=== PATIENT | male | born 1995 | race Two or more races ===

== ENCOUNTER 2019-12-31 07:50 | Outpatient (REF) | payer OTHER, SELFPAY | END 2019-12-31 07:51 | disposition home or self-care (01) | LOC: HO.LAB 07:50 | PROVIDERS: Visit Provider Internal Medicine | DX: Z20.828 Contact with and (suspected) exposure to other viral communicable diseases (principal) | CPT/HCPCS: C9803; U0003 ==

== ENCOUNTER 2020-01-29 06:12 | Outpatient (REF) | payer OTHER, SELFPAY | END 2020-01-29 06:13 | disposition home or self-care (01) | LOC: HO.LAB 06:12 | PROVIDERS: Visit Provider Internal Medicine | DX: Z20.828 Contact with and (suspected) exposure to other viral communicable diseases (principal) | CPT/HCPCS: C9803; U0003 ==

== ENCOUNTER 2021-03-13 09:27 | Outpatient (REF) | payer OTHER, SELFPAY ==
[2021-03-13 09:49] LABS: COVID-19 Test Negative (Negative)
== END 2021-03-13 09:28 | disposition home or self-care (01) ==
LOC: HO.LAB 09:27
PROVIDERS: Visit Provider Internal Medicine
DX: Z20.822 Contact with and (suspected) exposure to COVID-19 (principal)
CPT/HCPCS: 87635; C9803

== ENCOUNTER 2024-07-05 19:16 | Emergency (ER) | payer OTHER, SELFPAY ==
[2024-07-05 19:29] VITALS: BP 165/91; PULSE 81; RESP 20; TEMP 36.9; O2SAT 100; BMI 27.6
--- NOTE | 2024-07-05 19:29 | ED.GENADULT ---
HPI - General Adult General Chief complaint: Urogenital-Male Stated complaint: multiple complaints Time Seen by Provider: 07/05/24 21:57 Source: patient Mode of arrival: ambulatory Limitations: no limitations History of Present Illness ED Provider: HPI narrative: Patient's history of STI/coronary in the past noticed for last 3 days purulent discharge from the penis intermittently was seen at urgent care center previously with negative STD test complaining of burning with urination Related Data Previous Rx's ?Medication ?Instructions ?Recorded doxycycline hyclate 100 mg tablet 100 mg PO BID #14 tabs 07/05/24 Allergies Allergy/AdvReac Type Severity Reaction Status Date / Time No Known Allergies Allergy Verified 07/05/24 19:31 Review of Systems Review of Systems: Yes all other systems are reviewed and are negative [facility] Social History Social History Advance Directives: No Advance Directives Information Provided: No Physical Exam ED Vital Signs: Vital Signs - 24 hr 07/05/24 19:29 07/05/24 22:06 07/05/24 22:37 Temperature 98.4 F 98.2 F 98.2 F Pulse Rate 81 57 57 Respiratory Rate 20 16 16 Blood Pressure 165/91 H 133/84 133/84 Pulse Oximetry 100 100 100 Oxygen Delivery Method Room Air Room Air Room Air BMI result Body Mass Index 27.6 Appearance: Alert. Oriented X3. No acute distress. Neck: Normal inspection. Neck supple. CVS: Normal heart rate and rhythm. Pulses normal. Respiratory: No respiratory distress. Equal air entry bilateral, no wheezing/rales/rhonchi Abdomen: Soft and nontender. Bowel sounds are present, no mass palpable, no CVA tenderness : No penile discharge Skin: Skin warm and dry. Normal skin color. Normal skin turgor. Extremities: No lower extremity edema. No calf tenderness Neuro: Oriented X 3. Course Course Course Narrative: This is an RME: Additional HPI, ROS, PE not included below will be deferred to primary provider. RME assessment and note performed by: Harry Oneal PA-C Patient reports 5 days of green penile discharge. Reports pruritus of the glans. Also reports dysuria, and B/L stabbing flank pain. Went UC and was tested for 2 STI's that came back negative . Reports subjective fever, chills and headache. Plan: Labs, UA, CTNG urine Medications Administered Discontinued Medications Generic Name Dose Route Start Last Admin Trade Name Ranulfo PRN Reason Stop Dose Admin Ceftriaxone Sodium 500 mg/ 0 mg 07/05/24 22:03 07/05/24 22:31 Lidocaine HCl 1 ml IM 07/05/24 22:04 350 kit ONCE ONE Administration Doxycycline Monohydrate 100 mg 07/05/24 22:03 07/05/24 22:30 Doxycycline Monohydrate 100 Mg Capsule PO 07/05/24 22:04 100 mg ONCE ONE Administration Medical Decision Making Medical Decision Making MDM Narrative: Patient with a high-risk of STI complains of purulent discharge from the penis at this time there were no discharge noticed sample sent for GC and chlamydia patient wanted the treatment patient was given prophylactic treatment for GC and chlamydia Lab Data [facility] Lab Attestation statement: I reviewed the patient's lab results. 07/05/24 19:44 07/05/24 19:44 Labs: Lab Results 07/05/24 Range/Units 19:44 WBC 6.9 (4.8-10.8) X10*3/uL RBC 5.07 (4.60-5.80) X10*6/uL Hgb 14.5 (14.0-18.0) g/dl Hct 42.7 (42.0-52.0) % MCV 84.2 (80.0-98.0) fL MCH 28.6 (27.0-33.0) pg MCHC 34.0 (31.0-36.0) g/dl RDW 14.3 (11.0-16.0) % Plt Count 258 (160-400) X10*3/uL MPV 8.9 L (9.4-12.4) fL Immature Gran % (Auto) 0.3 (0.0-0.4) % Neut % (Auto) 54.2 (45-73) % Lymph % (Auto) 36.1 (20-40) % Barry % (Auto) 7.2 (2-11) % Eos % (Auto) 1.5 (0-4) % Baso % (Auto) 0.7 (0-2) % Lymph # (Auto) 2.5 (1.2-4.9) X10*3/uL Barry # (Auto) 0.5 (0.1-1.2) X10*3/uL Eos # (Auto) 0.1 (0.0-0.4) X10*3/uL Baso # (Auto) 0.1 (0.0-0.2) X10*3/uL Abs Immat Gran (auto) 0.02 (0.00-0.03) X10*3/uL Absolute Neuts (auto) 3.7 (2.0-8.3) x10*3/uL Absolute Nucleated RBC 0.000 (0.0-0.012) X10*3/uL Nucleated RBC % (auto) 0.0 (0.0-0.2) /100WBC Sodium 141 (135-145) mmol/L Potassium 4.0 (3.3-5.1) mmol/L Chloride 107 (96-108) mmol/L Carbon Dioxide 27 (22-29) mmol/L Anion Gap 11 L (12-20) BUN 18 H (9-16) mg/dL Creatinine 0.81 (0.5-1.4) mg/dL Estim Creat Clear Calc 137.4 Estimated GFR > 60 Random Glucose 93 (60-115) mg/dL Calcium 9.7 (8.4-10.2) mg/dL Total Bilirubin 0.5 (0.0-1.0) mg/dL AST 24 (5-37) U/L ALT 30 (0-40) U/L Alkaline Phosphatase 90 (39-117) U/L Total Protein 7.8 (6.5-8.0) g/dL Albumin 5.1 H (3.5-5.0) g/dL Urine Color Yellow Urine Appearance Clear Urine pH 6.0 (5.0-9.0) Ur Specific Mary D >= 1.030 H (1.005-1.025) Urine Protein Negative (Neg-Trace) mg/dL Urine Glucose (UA) Negative (Negative) mg/dL Urine Ketones Trace (Negative) mg/dL Urine Blood Negative (Negative) Urine Nitrite Negative (Negative) Ur Leukocyte Esterase Negative (Negative) Chlam trachomat DNA PCR NOT DETECTED (Not Detect.) N.gonorrhoeae DNA (PCR) NOT DETECTED (Not Detect.) Discharge Plan Discharge Clinical Impression: Sexually transmitted disease Patient Disposition: Home, Self-Care Instructions: Sexually Transmitted Diseases (ED) Additional Instructions: Have safe sex practice Final report of your STI is pending You have been given prophylactic treatment for gonorrhea and chlamydia Prescriptions: New doxycycline hyclate 100 mg tablet 100 mg PO BID Qty: 14 0RF Interventions: ED Discharge Assessment Last Done: 07/05/24 22:37 Discharge Date/Time: 07/05/24 22:48 Print Language: Arabic
[2024-07-05 19:49] LABS: MANUAL DIFF FLAG NO
[2024-07-05 19:50] LABS: Basophils Absolute Auto 0.1 X10*3/uL (0.0-0.2); Basophils Percent Auto 0.7 % (0-2); Eosinophils Absolute Auto 0.1 X10*3/uL (0.0-0.4); Eosinophils Percent Auto 1.5 % (0-4); Hematocrit 42.7 % (42.0-52.0); Hemoglobin 14.5 g/dl (14.0-18.0); Imm Gran Abs Auto 0.02 X10*3/uL (0.00-0.03); Imm Gran Pct Auto 0.3 % (0.0-0.4); Lymphocytes Absolute Auto 2.5 X10*3/uL (1.2-4.9); Lymphocytes Percent Auto 36.1 % (20-40); Mean Corpuscular Hemoglobin 28.6 pg (27.0-33.0); Mean Corpuscular Volume 84.2 fL (80.0-98.0); Mean Platelet Volume 8.9 fL (9.4-12.4); Monocytes Absolute Auto 0.5 X10*3/uL (0.1-1.2); Monocytes Percent Auto 7.2 % (2-11); Neutrophils Absolute Auto 3.7 x10*3/uL (2.0-8.3); Neutrophils Percent Auto 54.2 % (45-73); Platelet Count 258 X10*3/uL (160-400); Red Blood Count 5.07 X10*6/uL (4.60-5.80); Red Cell Distribution Width 14.3 % (11.0-16.0); White Blood Count 6.9 X10*3/uL (4.8-10.8)
[2024-07-05 19:51] LABS: Appearance Urine Clear; Color Urine Yellow; Glucose Urine UA Negative (Negative); Leukocyte Esterase Urine Negative (Negative); Nitrite Urine Negative (Negative); Specific Gravity - Urine >= 1.030 (1.005-1.025); Urine Blood Negative (Negative); Urine Ketones Trace mg/dL (Negative); Urine Protein Negative (Neg-Trace)
[2024-07-05 20:04] LABS: Alanine Aminotransferase 30 U/L (0-40); Albumin Level 5.1 g/dL (3.5-5.0); Alkaline Phosphatase 90 U/L (39-117); Anion Gap 11 (12-20); Aspartate Amino Transferase 24 U/L (5-37); Bilirubin Total 0.5 mg/dL (0.0-1.0); Blood Urea Nitrogen 18 mg/dL (9-16); Calcium 9.7 mg/dL (8.4-10.2); Carbon Dioxide 27 mmol/L (22-29); Chloride 107 mmol/L (96-108); Creatinine Clr Calc Pharmacy 137.4; Estimated Glomerular Filt Rate > 60; Glucose Random 93 mg/dL (60-115); Sodium 141 mmol/L (135-145); Total Protein 7.8 g/dL (6.5-8.0)
--- OUTSIDE RECORDS SUMMARY | 2024-07-05 20:26 | XMS_ITS | Clinical Summary ---
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 Overview (11/13/2021): CXR negative, referred to TB clinic ; 10 m ppd, tb clinic 06/2015- TSPOT NEG (sent to scan 10/24) Tobacco use 08/27/2021 Requires Bacillus Calmette-Carlos Manuel vaccination Proteinuria 09/04/2014 Immunizations Immunization Administration Dates Next Due BCG 1996 DTP 08/03/1998, 8,01/09/1997,1996,0 1996 Hep B, Adolescent or Pediatric 01/03/2008,2007 Hepatitis B 03/19/2015 Influenza, Unspecified 01/03/2008 MMR 04/16/2015,05/20/2006 Measles 05/20/2006,06/10/1997,01/09/1997 PPD Test 03/19/2015,01/03/2008 Polio, Unspecified 08/03/1998, 8,01/09/1997,1996,0 1996 Td 08/02/2007 Tdap 03/19/2015 Varicella 04/16/2015,01/03/2008 Social History Tobacco Use Types Packs/Day Years Used Date Smoking Tobacco: Never Assessed Sex and Gender Information Value Date Recorded Sex Assigned at Not on file Legal Sex Male 1:42 PM EDT Gender Identity Not on file Sexual Orientation Not on file Plan of Treatment Health Maintenance Due Date Last Done Comments Influenza Vaccine (Season Ended) 2024 01/03/2008 Hepatitis B Vaccine Completed 03/19/2015, 01/03/2008, 08/02/2007 Pneumococcal Vaccine: Peds ( 0 to 5 Years) and At-Risk Patients (6 to 49 Years) Aged Out No longer eligi ble based on patient's age to complete this topic Care Teams [employer] Manager Relationship Specialty Start Date End Date Carie Richard [address] [place] [address] PCP - General 09/01/21
[2024-07-05 22:06] VITALS: BP 133/84; PULSE 57; RESP 16; TEMP 36.8; O2SAT 100
[2024-07-05] MEDS: Doxycycline Monohydrate 100 MG CAPSULE PO (22:30)
[2024-07-05] MEDS: cefTRIAXone sodium 500 MG, Lidocaine HCl 1 % MPF 1 ML IM (22:31)
[2024-07-05 22:37] VITALS: BP 133/84; PULSE 57; RESP 16; TEMP 36.8; O2SAT 100
[2024-07-05 23:20] LABS: CT PCR NOT DETECTED (Not Detect.); NG PCR NOT DETECTED (Not Detect.)
== END 2024-07-05 22:48 | disposition home or self-care (01) ==
PROVIDERS: Emergency Provider Internal Medicine
DX: A64 Unspecified sexually transmitted disease (principal); R36.9 Urethral discharge, unspecified; Z79.899 Other long term (current) drug therapy
CPT/HCPCS: 36415; 80053; 81003; 85025; 87491; 87591; 96372; 99284; J0696; J2003

== ENCOUNTER 2024-08-30 14:18 | Outpatient (REF) | payer OTHER, SELFPAY ==
[2024-08-31 03:40] LABS: Syphilis Screen Nonreactive (Nonreactive)
[2024-08-31 04:07] LABS: HBsAGNum1 0.34 S/CO (0.00-0.99); HIV Num 1 0.06 S/CO (0.00-0.99); Hepatitis B Surface Antigen Negative (Negative); ~HepC Num1 0.13 S/CO (0.00-0.79); ~Hepatitis C Antibody Nonreactive (Nonreactive)
== END 2024-08-30 14:19 | disposition home or self-care (01) ==
LOC: HO.LAB 14:18
PROVIDERS: Visit Provider Urology
DX: Z11.3 Encounter for screening for infections with a predominantly sexual mode of transmission (principal); Z11.4 Encounter for screening for human immunodeficiency virus [HIV]; Z11.59 Encounter for screening for other viral diseases; R36.9 Urethral discharge, unspecified; R30.9 Painful micturition, unspecified; Z20.2 Contact with and (suspected) exposure to infections with a predominantly sexual mode of transmission; Z79.899 Other long term (current) drug therapy
CPT/HCPCS: 36415; 81003; 86780; 86803; 87340; 87389

== ENCOUNTER 2024-08-30 14:18 | Outpatient (AMB) | payer OTHER, SELFPAY ==
--- OUTSIDE RECORDS SUMMARY | 2024-08-30 14:22 | XMS_ITS | Clinical Summary ---
Author Organization [facility] ity Address [address] [place] [address] Care Team Providers Care Therapy Manager Name Role Phone Tulio Tee MD Primary Care Provider [phone] Allergies No known active allergies Active Problems Problem Noted Date Diagnosed Date PPD positive 02/07/2024 Overview (02/07/2024): CXR negative, referred to TB clinic ; 10 m ppd, tb clinic 06/2015- TSPOT NEG (sent to scan 10/24) Hypertension 10/13/2021 Overview (02/07/2024): Last Assessment & Plan: Blood pressure seems to be normal now off of medical therapy since of the notes is going on here which I do not know either dietary or Chest pain 09/28/2021 Overview (02/07/2024): Last Assessment & Plan: She complained of vague chest discomfort probably not cardiac but we will send him for stress test to ensure that Palpitations 09/28/2021 Overview (02/07/2024): Last Assessment & Plan: Patient was placed on Bystolic for his symptoms while in [facility]. Not a great drug for him 26-year-old he is having significant side effects from it he was also on hydrochlorothiazide. We will stop this gradually decreasing to half pill a day for the next week. He also some evidence of second-degree block not a great drug of choice that would come back reassess his blood pressure reassess his symptoms and then reconstruct his hypertensive therapy if necessary.. Proteinuria 09/04/2014 Immunizations Name Administration Dates Next Due BCG 1996 DTP 08/03/1998, 8,01/09/1997,1996,1996 Hepatitis B (Vkrybji-Y-Kbtfh , Recombivax HB-Adult) 19yo and older 03/19/2015 Hepatitis B Pediatric (Enger ix B; Recombivax HB) to less than 20 yo 01/03/2008,08/02/2007 Influenza trivalent, with preservative (Fluzone; Afluria) 6mo and older 01/03/2008 MMR, measles mumps and rubel la Live (Priorix; M-M-R II) 12mo and older 04/16/2015,05/20/2006 Measles 05/20/2006,06/10/1997,01/09/1997 OPV 08/03/1998, 8,01/09/1997,1996,1996 Td Tetanus diptheria (Tdvax) 7yo and older 08/02/2007 Tdap Tetanus diptheria acell ular pertussis (Boostrix; Adacel) 7yo and older 03/19/2015 Varicella live (Varivax) 12m o and older 04/16/2015,01/03/2008 Surgical History Surgery Date Site/Laterality Comments OTHER SURGICAL HISTORY PROCEDURE: DENIES PREVIOUS SURGERY Medical History Medical History Date Comments Asthma DX:Asthma PPD positive 12/15 DX:PPD positive; COMMENT: CXR negative, referred to TB clinic Family History Medical History Relation Name Comments Allergies Father Asthma Father Hypertension Father Relation Name Status Comments Father Social History Tobacco Use Types Packs/Day Years Used Date Smoking Tobacco: Every Day Smokeless Tobacco: Never Alcohol Use Standard Drinks/Week Comments Yes 0 (1 standard drink = 0.6 oz pur e alcohol) Sex and Gender Information Value Date Recorded Sex Assigned at Not on file Legal Sex Male 3:14 AM EST Gender Identity Not on file Sexual Orientation Not on file Obstetrics History Last Filed Vital Signs Vital Sign Reading Time Taken Comments Blood Pressure 100/70 09/29/2021 2:29 PM EDT Standing L Arm Pulse 65 10/13/2021 3:27 PM EDT Temperature - - Respiratory Rate - - Oxygen Saturation - - Inhaled Oxygen Concentration - - Weight 86.7 kg (191 lb 3.2 oz) 10/13/2021 3:27 PM EDT Height 172.7 cm (5' 8 ) 10/13/2021 3:27 PM EDT Body Mass Index 29.07 10/13/2021 3:27 PM EDT Plan of Treatment Health Maintenance Due Date Last Done Comments Pneumococcal Vaccine: Pediatrics (0 to 5 Years) and At-Risk Patients (6 to 49 Years) (1 of 2 - PCV) 2015 Social Influencers of Health Screening 01/10/2022 Hypertension/CHF/CAD Annual BMP Blood Test 08/27/2022 08/27/2021 COVID-19 Vaccine ( season) 2023 08/02/2020, 07/05/2020 Depression Screening 02/08/2024 Influenza Vaccine (#1) 2024 01/03/2008 DTaP,Tdap,and Td Vaccines (7 - Td or Tdap) 03/19/2025 03/19/2015, 08/02/2007, 08/03/1998, Additional history exists Cholesterol Screening (Lipid Panel) 08/27/2026 08/27/2021 IPV Vaccines Completed 08/03/1998, 05/1997, 01/09/1997, Additional history exists Hepatitis B Vaccines Completed 03/19/2015, 01/03/2008, 08/02/2007 MMR Vaccines Completed 04/16/2015, 05/20/2006 Varicella Vaccines Completed 04/16/2015, 01/03/2008 HIV Screening Completed 01/03/2019 Hepatitis C Screening Completed 01/03/2019 HIB Vaccines Aged Out No longer eligi ble based on patient's age to complete this topic HPV Vaccines Aged Out No longer eligi ble based on patient's age to complete this topic Hepatitis A Vaccines Aged Out No long er eligible based on patient's age to complete this topic Meningococcal ACWY Vaccine Aged Out N o longer eligible based on patient's age to complete this topic Meningococcal B Vaccine Aged Out No l onger eligible based on patient's age to complete this topic RSV Immunization Patients Under 20 months Aged Out No longer eligible based on patient's age to complete this topic Procedures Procedure Name Priority Date/Time Associated Diagnosis Comments ANNUAL BMP BLOOD TEST Routine 08/27/2021 LIPID PANEL Routine 08/27/2021 HEPATITIS C SCREENING Routine 01/03/2019 HIV SCREENING Routine 01/03/2019 from Last 3 Months or Most Recently Relevant to Health Maintenance Results * Annual BMP Blood Test (08/27/2021) Annual BMP Blood Test abstracted [facility] Provider HEALTH MAINTENANCE Final Result * (ABNORMAL) Lipid panel (08/27/2021) Pathologist [facility] LDL/HDL Ratio 6(A) 0 - 4 Triglycerides 243(A) 0 - 150 mg/dL Cholesterol 191 0 - 200 mg/dL HDL 34(A) >=40 mg/dL LDL Cholesterol 109(A) 0 - 100 mg/dL Blood Venous blood specimen / Unknown [facility] Provider LAB BLOOD ORDERABLES Yamileth l Result * HIV Screening (01/03/2019) Pathologist [facility] HIV Screening abstracted [facility] Provider HEALTH MAINTENANCE Final Result * Hepatitis C Screening (01/03/2019) Pathologist [facility] Hepatitis C Screening abstracted [facility] Provider HEALTH MAINTENANCE Final Result from Last 3 Months or Most Recently Relevant to Health Maintenance Care Teams Therapy Manager Relationship Specialty Start Date End Date Tulio Tee MD PCP - General Internal Medicine 11/25/18
--- OUTSIDE RECORDS SUMMARY | 2024-08-30 14:22 | XMS_ITS | Clinical Summary ---
Author Organization [facility] Facility Address [address] [place] [id number] Care Team Providers Care Ecological Risk Assessor Name Role Phone Carie Richard Primary Care Provider Medications hydroCHLOROthiaz george (MICROZIDE) 12.5 MG capsule [...] Due Date Last Done Comments Influenza Vaccine (#1) 2024 01/03/2008 Hepatitis B Vaccine Completed 03/19/2015, 01/03/2008, 08/02/2007 Pneumococcal Vaccine: Peds ( 0 to 5 Years) and At-Risk Patients (6 to 49 Years) Aged Out No longer eligi ble based on patient's age to complete this topic Care Teams Ecological Risk Assessor Relationship Specialty Start Date End Date Carie Richard [address] [place] [address] PCP - General 09/01/21
--- OUTSIDE RECORDS SUMMARY | 2024-08-30 14:22 | XMS_ITS | Data Portability ---
Author Organization [facility], [address] Address [address] [place] [address] Assessment No assessment recorded. Plan of Treatment Reminders Order Date Submit Date Provider Last Modified By Organization Details Last Modified Time Details Appointments None recorded. Lab urinalysis, dipstick 2022 023 [email or web address] 5 [facility], [address] [place], [address], 3 13:47:55 culture, urine 2022 023 [facility] ([place]), [address] [place] [address], [address], 3 06:07:54 unlisted lab - CT/GC/TV YOEL+mycopla smas urine 2022 023 [employer], [address] [place] [address], [address], 3 06:06:15 herpes simplex + varicella zoster, culture, unspecified specimen 2022 023 [facility], [address] [place] [address], [address], 3 12:06:08 Referral urologist referral 2022 023 [email or web address] miguel Wood MD, [address], [address], 3 13:57:49 Procedures None recorded. Surgeries None recorded. Imaging None recorded. Medication Orders None recorded. Patient TargetsNo targets recorded. Patient Instructions Encounter Date Encounter Id Patient Instructions Last Modified By Organization Details Last Modified Time 10/19/2022 [id number] painful urinatio n (dysuria): care instructions [email or web address] Not available 10/19/2022 13:47:52 genital herpes: care instructions [email or web address] Not available 10/19/2022 13:47:52 testicular pain: care instructions [email or web address] Not available 10/19/2022 13:47:52 You will be contacted when your lab reports return. See printed instructions. A referral to urology has been made for you, call Dr. Wood to make an appointment as soon as possible. Follow-up with your doctor as soon as possible. Seek Emergency Medical evaluation for any worsening symptoms, particularly for increased testicular pain, swelling, penile or scrotal lesions, redness, skin discoloration, abdominal pain, fever, chills, inability to urinate. [email or web address] Not available 10/19/2022 13:52:51 Reason for Referral Urologist Referral for Pain of left testicle Intermittent left testicular pain and dysuria. Negative STI testing on multiple occasions Referring Physician: Rachel Kearney, Urgent Care, Encounter Date: 10/19/2022 Results Created Date Observation Date Name Description Value Unit Range Abnormal Flag Note LastModifiedBy Organization Detail LastModifiedTime 10/20/1910/21/2022 URINE CULTU RE, ROUTI NE urine culture, routine FINAL REPORT Not Available [facility] ([facility]) [address] [place], [address], 10/21/2022 06:07:54 10/20/1910/21/2022 URINE CULTU RE, ROUTI NE result 1 COMMEN T Cultu re shows less than 10,00 0 colon y formi ng units of bacte martha per harvey liter of urine . This colon y count is not gener ally consi dered to be clini noe signi tal t. Not Available [facility] ([facility]) [address] [place], [address], 10/21/2022 06:07:54 10/20/19 23 10/21/2022 VIRAL CULTU RE,RA PID,L ESION hsv culture/type COMMEN T Test not perfo rmed. No viral trans port devic e recei nicolette. Not Available [facility] ([facility]) [address] [facility], [place], [address], 10/21/2022 12:06:08 10/20/19 23 10/21/2022 VIRAL CULTU RE,RA PID,L ESION viral culture, rapid,varice lla TNP Test not perfo rmed Not Available [facility] ([facility]) [address] [place], [address], 10/21/2022 12:06:08 10/20/19 23 10/21/[address] PROBL EM request problem COMMEN T Test not perfo rmed. No viral trans port devic e recei nicolette. TEST: [id number] Viral Cultu re,Ra pid,L esion Not Available [facility] ([facility]) [address] [facility], [place], [address], 10/21/2022 12:06:09 10/20/19 23 10/22/2022 CT/GC /TV YOEL+M YCOPL ASMAS URINE mycoplasma genitalium YOEL NEGATI VE negati ve Not Available [facility] ([facility]) [address] [place], [address], 10/25/2022 06:06:15 10/20/1910/22/2022 CT/GC /TV YOEL+M YCOPL ASMAS URINE mycoplasma hominis YOEL NEGATI VE negati ve Not Available [facility] ([facility]) [address] [place], [address], 10/25/2022 06:06:15 10/20/19 23 10/22/2022 CT/GC /TV YOEL+M YCOPL ASMAS URINE ureaplasma spp YOEL NEGATI VE negati ve Not Available [facility] ([facility]) [address] [place], [address], 10/25/2022 06:06:15 10/20/1910/24/2022 CT/GC /TV YOEL+M YCOPL ASMAS URINE trich vag by YOEL NEGATI VE negati ve Not Available [facility] ([facility]) [address] [place], [address], 10/25/2022 06:06:15 10/20/1910/24/2022 CT/GC /TV YOEL+M YCOPL ASMAS URINE chlamydia trachomatis, YOEL NEGATI VE negati ve Not Available [facility] ([facility]) [address] [facility], [place], [address], 10/25/2022 06:06:15 10/20/1910/24/2022 CT/GC /TV YOEL+M YCOPL ASMAS URINE neisseria gonorrhoeae, YOEL NEGATI VE negati ve Not Available [facility] ([facility]) [address] [place], [address], 10/25/2022 06:06:15 10/20/1910/19/2022 urina lysis , dipst ick Unknown Analyte Yellow Not Available [facility] [place], [address], 10/19/2022 12:50:49 10/20/1910/19/2022 urina lysis , dipst ick Unknown Analyte Clear Not Available [facility] [address] [place], [address], 10/19/2022 12:50:49 10/20/1910/19/2022 urina lysis , dipst ick Unknown Analyte Negati ve Not Available [facility] [address] [place], [address], 10/19/2022 12:50:49 10/20/1910/19/2022 urina lysis , dipst ick Unknown Analyte Negati ve Not Available [facility] [address] [place], [address], 10/19/2022 12:50:49 10/20/1910/19/2022 urina lysis , dipst ick Unknown Analyte Negati ve Not Available [facility] [address] [place], [address], 10/19/2022 12:50:49 10/20/1910/19/2022 urina lysis , dipst ick Unknown Analyte 1.030 Not Available [facility] [address] [place], [address], 10/19/2022 12:50:49 10/20/1910/19/2022 urina lysis , dipst ick Unknown Analyte Negati ve Not Available [facility] [address] [place], [address], 10/19/2022 12:50:49 10/20/1910/19/2022 urina lysis , dipst ick Unknown Analyte 5.5 Not Available [address] [facility] [address] [place], [address], 10/19/2022 12:50:49 10/20/1910/19/2022 urina lysis , dipst ick Unknown Analyte Negati ve Not Available [facility] [address] [place], [address], 10/19/2022 12:50:49 10/20/1910/19/2022 urina lysis , dipst ick Unknown Analyte 0.2 E.U./d L Not Available [facility] [address] [place], [address], 10/19/2022 12:50:49 10/20/1910/19/2022 urina lysis , dipst ick Unknown Analyte Negati ve Not Available [facility] [address] [place], [address], 10/19/2022 12:50:49 10/20/1910/19/2022 urina lysis , dipst ick Unknown Analyte Negati ve Not Available [address] [place], [address], 10/19/2022 12:50:49 Result Notes None recorded. Problems No Known Problems Procedures Surgical History Date Name Laterality Status Provider Name and Address Organization Details Recorded Time OC-UDS Send Out Template NON DOT completed Karmen Connor PA - [facility] 08/27/2023 14:30:37 Imaging Results None recorded. Procedure Notes None recorded. Medical Equipment None Reported. Allergies No known drug allergies Medications Not known to be on any medication Vitals Date Recorded Body height Body mass index (BMI) Body weight Heart rate Oxygen saturation Oxygen saturation in Arterial blood by Pulse oximetry Respiratory rate Body temperature Systolic And Diastolic Provider Name and Address Organization Details Last Updated DateTime 3 172.72 cm 28.6 kg/m2 04945.3 7 g 68 /min 100 % 100 % 19 /min 98 [degF] 119/80 mm[Hg] JOSS FERRARO PA - [facility] 3 12:41:40 Social History None recorded. Functional Status None recorded. Mental Status None recorded. Family History Relationship Description Onset Age of this Age Resolved Age Notes LastModified by Organization Details LastModified Time Father No current problems or disability [email or web address] Not available 10/19 12:42:08 Mother No current problems or disability [email or web address] Not available 10/19 12:42:08 Medical History No medical history recorded. Immunizations Vaccine Type Date Status Note Provider Nam e and Address Organization Details Recorded Time measles 7 completed JOSS muñiz PA - [facility] 10/19/2022 12:41:55 measles 8 completed JOSS FERRARO null, PA - [facility] 10/19/2022 12:41:55 measles 7 completed JOSS FERRARO null, PA - [facility] 10/19/2022 12:41:55 MMR 6 completed JOSS FERRARO null, PA - [facility] 10/19/2022 12:41:55 MMR 7 completed JOSS FERRARO null, PA - [facility] 10/19/2022 12:41:56 COVID-19, mRNA, LNP-S, PF, 100 mcg/0.5mL dose or 50 mcg/0.25mL dose 1 completed JOSS FERRARO null, PA - [facility] 10/19/2022 12:41:56 COVID-19, mRNA, LNP-S, PF, 100 mcg/0.5mL dose or 50 mcg/0.25mL dose 1 completed JOSS FERRARO null, PA - [facility] 10/19/2022 12:41:56 Tdap 6 completed JOSS FERRARO null, PA - [facility] 10/19/2022 12:41:56 varicella 6 completed JOSS FERRARO null, PA - [facility] 10/19/2022 12:41:56 varicella 8 completed JOSS FERRARO null, PA - [facility] 10/19/2022 12:41:56 DTP 8 completed JOSS FERRARO null, PA - [facility] 10/19/2022 12:41:56 DTP 7 completed JOSS FERRARO null, PA - [facility] 10/19/2022 12:41:56 DTP 9 completed JOSS FERRARO null, PA - [facility] 10/19/2022 12:41:56 DTP 7 completed JOSS FERRARO null, PA - [facility] 10/19/2022 12:41:56 DTP 7 completed JOSS FERRARO null, PA - [facility] 10/19/2022 12:41:56 OPV, trivalent 8 completed JOSS FERRARO null, PA - [facility] 10/19/2022 12:41:56 OPV, trivalent 7 completed JOSS FERRARO null, PA - [facility] 10/19/2022 12:41:56 OPV, trivalent 9 completed JOSS FERRARO null, PA - [facility] 10/19/2022 12:41:56 OPV, trivalent 7 completed JOSS FERRARO null, PA - [facility] 10/19/2022 12:41:56 OPV, trivalent 7 completed JOSS FERRARO null, PA - [facility] 10/19/2022 12:41:56 BCG 7 completed JOSS FERRARO null, PA - [facility] 10/19/2022 12:41:56 Influenza, split virus, trivalent, preservative 8 completed JOSS FERRARO null, PA - [facility] 10/19/2022 12:41:56 Td (adult), 2 Lf tetanus toxoid, preservative free, adsorbed 8 completed JOSS FERRARO null, PA - [facility] 10/19/2022 12:41:56 Hep B, adolescent or pediatric 8 completed JOSS FERRARO null, PA - [facility] 10/19/2022 12:41:56 Hep B, adolescent or pediatric 8 completed JOSS FERRARO null, PA - [facility] 10/19/2022 12:41:56 Hep B, adult 6 completed JOSS FERRARO null, PA - [facility] 10/19/2022 12:41:56 Past Encounters Encounter ID Performer Location Encounter Start Date Encounter Closed Date Diagnosis/Indication Diagnosis SNOMED-CT Code Diagnosis ICD10 Code Diagnosis Note [id number] [address] [address] [address] 07/22/2019 11:51:06 07/22/2019 12:20:41 [id number] [address] [address] [facility] [place] [address] 10/05/2020 09:13:31 10/05/2020 12:43:15 [id number] Rachel [facility]ney [facility] [address] [place] [address] 10/19/2022 12:21:56 10/19/2022 13:57:48 Dysuria 23614902 R30.0 Pain of left testicle 16 20560482 [id number] N50.812 [id number] LEXIE MCGILL [facility] [address] [address] [facility] [place] [address] 08/27/2023 13:55:41 08/27/2023 14:34:24 History and physical examination, occupation 976982251 Z02.1 Health Concerns Section Related Observation LastModified by Organization Detai ls LastModified Time None Recorded Concern Status LastModified by Organization Details LastModified Time None Recorded Advance Directives Directive None Recorded Payers Insurance Date Sequence Insurance Name Policy Number Policy Arrington Covered Member ID Arrington Member ID Guarantor Name 08/27/2023 OC-ESCREEN [employer] (Fadv Ec [id number] Srikanth Betina 10/19/[address] [facility] [id number] Srikanth D Betina [id number] Srikanth Betina 10/19/2022 1 [employer] [id number] Srikanth Betina [id number] Srikanth Betina 08/27/2023 1 [employer] [id number] Srikanth Betina [id number] Srikanth Betina Notes Date Note Type Note Provider Name and Address Organization Details Recorded Time 10/19/2022 text/html Urinary Problems-MaleReported by PatientGU ProblemsFor quality, patient reportsdull. For source of patient information, patient reportsinformation obtained from patientandpatient arrived at urgent care ambulatory. For location, patient reportspenis(testicles. ). For severity, patient reportsmild. For associated symptoms, patient reportsno scrotal lesions/sores,no penile discharge,no flank pain,no jaundice,no blood in the urine,no change in urine appearance,no urine odor,no impotence,no fever/chills,no fatigue, andno myalgia(has noted some bumps on his penis and would like to be tested for herpes. bumps are not painful.). For duration, (most recently for 5 days intermittent.). For onset/timing, (intermittent, low grade for 5 days.). For context, (tested negative for std's several times over past 4 months.). For modifying factors, (has occasional very mild dysuria.).27 year old male presenting for evaluation of very mild, vague, left testicular discomfort, intermittent mild dysuria and some non-painful bumps on his penis for the past 5 days. He reports having genital issues on and off for about 4 months. He has had balanitis that has been treated. He has had recurrent bilateral testicular discomfort for which he has seen several doctors. Two months ago while in [facility] he reports that he was diagnosed with a strep infection on a sperm test. He was treated with antibiotics and felt better. He states he has been told he did not have testicular torsion. He has had multiple tests for STD's that were all negative. He denies fever, chills, generalized rash, urethral discharge, testicular masses or swelling, scrotal redness/rash/lesions. No flank pain, hematuria, nausea, vomiting, diarrhea or back pain. Rachel Kearney MD [address] [facility] [place], [address], PA - [facility] 10/21/2022 09:42:05
--- OUTSIDE RECORDS SUMMARY | 2024-08-30 14:23 | XMS_ITS ---
Author Name [facility] Organization Unknown Care Team Organization Name Specialty Phone Email Start Date End Da te [facility] 12/15/2021 4
--- NOTE | 2024-08-30 14:43 | A.OFFVIS_ITS ---
Intake Visit Reasons: hx of dysuria/urethral discharge Intake Note: New patient presents today for initial visit for hx of dysuria/urethral discharge Urology Medication:None Blood Thinner:None Antibiotic Allergies:None Pyridine Recovery Operator Required: No Allergies No Known Allergies Allergy (Verified 08/30/24 14:45) Medication List - Last Reconciled 08/30/24 by Angeline Roldan MD sulfamethoxazole-trimethoprim 800-160 mg (Bactrim DS) 1 tab PO BID 14 days tamsulosin (Flomax) 0.4 mg PO BEDTIME HPI Comments Details: 08/30/24 History of Present Illness - The patient is a 29-year-old male presenting with penile discharge. - The discharge was initially noted earlier this year and was treated with antibiotics in June. - Despite treatment, the discharge has persisted. - Urine tests for gonorrhea and chlamydia conducted on July 05 returned negative results. - The discharge varies in appearance and is sometimes associated with a burning sensation during urination. - The patient has not undergone testing for HIV or other sexually transmitted infections beyond the basic protocol. - The physician suspects prostatitis as a potential cause of the discharge. Results - Urine test for gonorrhea: Negative - Urine test for chlamydia: Negative Plan - Prescribe a different antibiotic to address possible atypical bacterial infection. - Recommend partner evaluation by a bread oven operator and advise condom use during intercourse. - Order blood tests for HIV and other sexually transmitted infections. - Prescribe tamsulosin to relax prostate muscles and reduce discharge. - Advise monitoring for dizziness as a side effect of tamsulosin and report to the nurse if it occurs. Results AMB Urinalysis, Automated UA Leukoctes 0 Deven/uL Last Edit by Joselyn Pichardo on 08/30/24 16:32 UA Nitrite Negative Last Edit by Joselyn Pichardo on 08/30/24 16:32 UA Urobilinogen 17 mg/dL Last Edit by Joselyn Pichardo on 08/30/24 16:32 UA Protein 1 mg/dL Last Edit by Joselyn Pichardo on 08/30/24 16:32 UA pH 6.0 Last Edit by Joselyn Pichardo on 08/30/24 16:32 UA Blood 0 Pio/uL Last Edit by Joselyn Pichardo on 08/30/24 16:32 UA Specific [place] 1.015 Last Edit by Joselyn Pichardo on 08/30/24 16:32 UA Ketone Negative Last Edit by Joselyn Pichardo on 08/30/24 16:32 UA Bilirubin 0 mg/dL Last Edit by Joselyn Pichardo on 08/30/24 16:32 UA Glucose 0 mg/dL Last Edit by Joselyn Pichardo on 08/30/24 16:32 Results Reviewed Results Reviewed: Laboratory Last Values Urine pH (Auto) 6.0 08/30/24 16:17 Specific [place] (Auto) 1.015 08/30/24 16:17 Urine Protein (Auto) 1 mg/dL 08/30/24 16:17 Glucose (UA)(Auto) 0 mg/dL 08/30/24 16:17 Urine Ketones (Auto) Negative 08/30/24 16:17 Urine Blood (Auto) 0 Pio/uL 08/30/24 16:17 Urine Nitrite (Auto) Negative 08/30/24 16:17 Urine Bilirubin (Auto) 0 mg/dL 08/30/24 16:17 Urine Urobilinogen (Auto) 17 mg/dL 08/30/24 16:17 Leukocyte Esterase (Auto) 0 Deven/uL 08/30/24 16:17 Assessment & Plan Assessment & Plan (1) Possible exposure to STD: Code(s): Z20.2 - Contact with and (suspected) exposure to infections with a predominantly sexual mode of transmission Category: Medical Orders: Orders HIV Ab/Ag Today 20.2 - Contact with and (suspected) exposure to infections with a predominantly sexual mode of transmission Hepatitis C Antibody Today 20.2 - Contact with and (suspected) exposure to infections with a predominantly sexual mode of transmission AMB Urinalysis Automated Today 20.2 - Contact with and (suspected) exposure to infections with a predominantly sexual mode of transmission Hepatitis B Surface Antigen Today 20.2 - Contact with and (suspected) exposure to infections with a predominantly sexual mode of transmission Syphilis Screen Today 20.2 - Contact with and (suspected) exposure to infections with a predominantly sexual mode of transmission Medications: New sulfamethoxazole-trimethoprim 800-160 mg (Bactrim DS) 1 tab PO BID 28 tabs 0RF 14 days tamsulosin (Flomax) 0.4 mg PO BEDTIME 30 caps 0RF Discontinued doxycycline hyclate Discontinued Reason: Patient no longer taking 100 mg PO BID 14 tabs 0RF Coding Diagnoses Possible exposure to STD Z20.2
== END 2024-08-30 16:11 | disposition home or self-care (01) ==
LOC: HO.HUSH 14:19
PROVIDERS: Visit Provider Urology
DX: Z20.2 Contact with and (suspected) exposure to infections with a predominantly sexual mode of transmission (principal)

== ENCOUNTER 2024-10-05 15:05 | Outpatient (AMB) | payer OTHER, SELFPAY ==
--- NOTE | 2024-10-05 15:06 | A.OFFVIS_ITS ---
Intake Visit Reasons: 5W/Labs Intake Note: patient presents today for: telehealth 5 week follow up on labs Urology Medication: tamsilosin Blood Thinner:None Mattress Filling Machine Tender Required: Yes Mattress Filling Machine Tender Name: Luis Mojica Information Interpreted: non-clinical & clinical Accompanied by: Self / Same As Patient Allergies No Known Allergies Allergy (Verified 10/05/24 15:07) Medication List - Last Reconciled 10/05/24 by Angeline Roldan MD No Known Home Meds HPI Comments Details: 10/05/2024--Felipe was initially evaluated on 08/30/2024 for urethral discharge. He had completed a course of doxycycline with persistent symptoms. I placed him on Bactrim DS b.i.d. for 14 days and tamsulosin. The patient states he completed the antibiotics. He took the tamsulosin for 20 days and stopped. He states he no longer has urethral discharge. I have reviewed serum STDs including HIV which have come back negative. Patient instructed on using condom with sexual activity to decrease risk of STD. 08/30/24 History of Present Illness - The patient is a 29-year-old male presenting with penile discharge. - The discharge was initially noted earlier this year and was treated with antibiotics in June. - Despite treatment, the discharge has persisted. - Urine tests for gonorrhea and chlamydia conducted on July 05 returned negative results. - The discharge varies in appearance and is sometimes associated with a burning sensation during urination. - The patient has not undergone testing for HIV or other sexually transmitted infections beyond the basic protocol. - The physician suspects prostatitis as a potential cause of the discharge. Results - Urine test for gonorrhea: Negative - Urine test for chlamydia: Negative Plan - Prescribe a different antibiotic to address possible atypical bacterial infection. - Recommend partner evaluation by a freight and passenger agent and advise condom use during intercourse. - Order blood tests for HIV and other sexually transmitted infections. - Prescribe tamsulosin Review of Systems Const All systems reviewed & are unremarkable except as noted in HPI and below Reports no additional complaints Eyes Reports no additional complaints ENT Reports no additional complaints Card Reports no additional complaints Resp Reports no additional complaints GI Reports no additional complaints Reports as per HPI Musc Reports no additional complaints Skin/Breast Reports system reviewed and no additional complaints, except as documented Neuro Reports no additional complaints Psych Reports no additional complaints Endo Reports no additional complaints Lucian/Lymph Reports no additional complaints Aller/Immun Reports no additional complaints Telehealth Telehealth Telehealth Platform: Telephone Location of provider rendering services: practice address Location of patient: address on file Patient Identification confirmed using: Name, : Yes Telehealth method: voice only Patient verbally consented to treatment: Yes Patient verbally consented to billing insurance company: Yes Patient informed of any privacy concerns related to visit: Yes Minutes spent on Phone/Video with Pt.: 13 Assessment & Plan Assessment & Plan (1) Urethral discharge in male: Code(s): R36.9 - Urethral discharge, unspecified Category: Medical Plan FU prn Medications: Discontinued sulfamethoxazole-trimethoprim 800-160 mg (Bactrim DS) Discontinued Reason: Patient Completed Course 1 tab PO BID 14 days 28 tabs 0RF tamsulosin (Flomax) Discontinued Reason: Patient no longer taking 0.4 mg PO BEDTIME 30 caps 0RF Patient Instructions: The patient had an opportunity to ask questions regarding treatment plan. The patient expressed understanding and agreement with the above treatment plan. The patient is aware they should contact our office by phone for worsening of their current condition or the appearance of new symptoms. Compliance is encouraged with any medications and followup testing that is ordered. It is a privilege to be allowed the opportunity to participate in the urologic care of your patient. If you have any questions or concerns regarding treatment for the above conditions please do not hesitate to contact me. The office telephone contact is [phone]. This note is constructed in part using voice recognition software. While every effort has been made to ensure accuracy foxing painter errors may have been included. Yours sincerely, Angeline Roldan MD Coding Level of Care Code Tele Est Pt Level 3 (33494) Diagnoses Urethral discharge in male R36.9
--- OUTSIDE RECORDS SUMMARY | 2024-10-05 15:07 | XMS_ITS | Clinical Summary ---
Author Organization [facility] Facility Address [address] [place] [address] Care Team Providers Care Electronic Pagination System Operator Name Role Phone Carie Richard Primary Care Provider [phone] Medications hydroCHLOROthiaz george (MICROZIDE) 12.5 MG capsule [...] age to complete this topic Care Teams Electronic Pagination System Operator Relationship Specialty Start Date End Date Carie Richard [address] [place] [address] PCP - General 09/01/21
--- OUTSIDE RECORDS SUMMARY | 2024-10-05 15:07 | XMS_ITS | Clinical Summary ---
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 Not a great drug for him [...] BCG 1996 DTP 08/03/1998, 8,01/09/1997,1996,1996 Hepatitis B (Rwkasgg-U-Yhjew , Recombivax HB-Adult) 19yo and older 03/19/2015 [...] Test (08/27/2021) Annual BMP Blood Test abstracted [facility] Provider HEALTH MAINTENANCE Final Result * (ABNORMAL) Lipid panel (08/27/2021) Pathologist [facility] LDL/HDL Ratio 6(A) 0 - 4 Triglycerides 243(A) 0 - 150 mg/dL Cholesterol 191 0 - 200 mg/dL HDL 34(A) >=40 mg/dL LDL Cholesterol 109(A) 0 - 100 mg/dL Blood Venous blood specimen / Unknown [facility] Provider LAB BLOOD ORDERABLES Yamileth l Result * HIV Screening (01/03/2019) Pathologist [facility] HIV Screening abstracted [facility] Provider HEALTH MAINTENANCE Final Result * Hepatitis C Screening (01/03/2019) Pathologist [facility] Hepatitis C Screening abstracted [facility] Provider HEALTH MAINTENANCE Final Result from Last 3 Months or Most Recently Relevant to Health Maintenance Care Teams Automatic Lump Making Machine Tender Relationship Specialty Start Date End Date Tulio Tee MD PCP - General Internal Medicine 11/25/18
== END 2024-10-05 16:29 | disposition home or self-care (01) ==
LOC: HO.HUSH 15:05
PROVIDERS: Visit Provider Urology
DX: R36.9 Urethral discharge, unspecified (principal)
CPT/HCPCS: 98013